=== PATIENT | female | born 1990 | race African-American/Black ===

== ENCOUNTER 2017-06-21 23:18 | Emergency (ER) | payer MEDICAID ==
[~2017-06-21] VITALS: Ht 160 cm; Wt 57.0 kg
[2017-06-22] MEDS ORDERED: IBUPROFEN 600MG TABLET PO ONE (02:30)
[2017-06-22 02:59] VITALS: BP 110/73
== END 2017-06-22 04:04 | disposition home or self-care (01) ==
LOC: ER 23:18
DX: J06.9 Acute upper respiratory infection, unspecified (principal)
CPT/HCPCS: 71045; 81025; 99283